=== PATIENT | male | born 1945 | race Caucasian/White ===

== ENCOUNTER 2016-12-12 08:37 | Inpatient (IN) ==
--- NOTE | 2016-12-12 08:45 | Emergency Department Note ---
Disposition Clinical Impression: Focal neurological deficit Disposition: Admitted As Inpatient Condition: Fair General Adult HPI - General Chief complaint: ED Neuro Symptoms/Deficit Stated complaint: neuro symtoms Time Seen by Provider: 12/12/16 08:41 - Related Data Home Medications Medication Instructions Recorded Confirmed Aspirin [Ecotrin] 325 mg PO QAM 12/12/16 12/12/16 GlyBURIDE 5 mg PO BID 12/12/16 12/12/16 Lisinopril [Zestril] 20 mg PO DAILY 12/12/16 12/12/16 Metformin [Glucophage] 1,000 mg PO QPM 12/12/16 12/12/16 Metformin [Glucophage] 500 mg PO QAM 12/12/16 12/12/16 Simvastatin [Zocor] 80 mg PO QPM 12/12/16 12/12/16 Allergies Allergy/AdvReac Type Severity Reaction Status Date / Time diphenhydramine Allergy Rash Verified 02/25/16 11:47 [From Benadryl] Past Medical History - Past Medical History Medical history: Reports: diabetes, hyperlipidemia, hypertension, valvular heart disease Surgical history: Reports: other (Open-heart valvular surgery) Psychiatric history: Reports: no psych history - Social History Smoking Status: Never smoker Smokeless Tobacco Status: No Alcohol use: Reports: none Drug use: Reports: none Course Vital Signs Temperature 98.6 F 12/12/16 08:47 Pulse Rate 78 12/12/16 08:47 Respiratory Rate 16 12/12/16 08:47 Blood Pressure 179/91 12/12/16 08:47 O2 Sat by Pulse Oximetry 97 12/12/16 08:47 Temperature 98.2 F 12/12/16 11:12 Pulse Rate 64 12/12/16 11:12 Respiratory Rate 18 12/12/16 11:12 Blood Pressure 161/90 12/12/16 11:12 O2 Sat by Pulse Oximetry 97 12/12/16 12:01 Oxygen Delivery Oxygen Delivery Room Air Medical Decision Making - Lab Data Result diagrams: 12/12/16 08:54 12/12/16 08:54 Lab Results 12/12/16 12/12/16 12/12/16 Range/Units 08:51 08:54 08:54 WBC 6.6 (4.3-11.1) K/mcL RBC 4.61 (4.19-5.50) M/mcL Hgb 14.6 (12.9-16.9) g/dL Hct 40.9 (37.5-50.1) % MCV 88.7 (83.0-100.0) fL MCH 31.7 (28.0-33.3) pg MCHC 35.7 H (31.6-35.5) g/dL RDW 12.4 (11.5-14.5) % Plt Count 208 (140-400) K/mcL MPV 9.5 (9.4-12.4) fL Immature Gran % 0.3 (0-4) % Seg Neutrophils % 63.9 % Lymphocytes % 24.8 % Monocytes % 9.0 % Eosinophils % 1.5 % Basophils % 0.5 % Neutrophils # 4.2 (1.6-8.9) K/mcL Lymphocytes # 1.6 (0.6-4.6) K/mcL Monocytes # 0.6 (0.0-1.3) K/mcL Eosinophils # 0.1 (0.0-0.6) K/mcL Basophils # 0.0 (0.0-0.2) K/mcL PT 12.2 H (9.4-12.1) Seconds INR 1.1 APTT 32.0 (26.0-36.0) Seconds Sodium (136-145) mEq/L Potassium (3.5-4.5) mEq/L Chloride (98-109) mEq/L Carbon Dioxide (19-29) mEq/L BUN (8-26) mg/dL Creatinine (0.72-1.25) mg/dL Est GFR ( Amer) (> 60) Est GFR (Non-Af Amer) (> 60) BUN/Creatinine Ratio (6-26) Glucose (70-99) mg/dL POC Glucose 192 H (58-89) Calculated Osmolality (280-300) Calcium (8.6-10.8) mg/dL Total Bilirubin (0.2-1.2) mg/dL AST (5-34) Units/L ALT (0-55) Units/L Alkaline Phosphatase (38-126) Units/L Troponin I (0-0.03) ng/mL Serum Total Protein (6.0-8.3) g/dL Albumin (3.5-5.0) g/dL Globulin (2.4-3.5) g/dL Albumin/Globulin Ratio (1.1-2.2) 12/12/16 12/12/16 Range/Units 08:54 08:54 WBC (4.3-11.1) K/mcL RBC (4.19-5.50) M/mcL Hgb (12.9-16.9) g/dL Hct (37.5-50.1) % MCV (83.0-100.0) fL MCH (28.0-33.3) pg MCHC (31.6-35.5) g/dL RDW (11.5-14.5) % Plt Count (140-400) K/mcL MPV (9.4-12.4) fL Immature Gran % (0-4) % Seg Neutrophils % % Lymphocytes % % Monocytes % % Eosinophils % % Basophils % % Neutrophils # (1.6-8.9) K/mcL Lymphocytes # (0.6-4.6) K/mcL Monocytes # (0.0-1.3) K/mcL Eosinophils # (0.0-0.6) K/mcL Basophils # (0.0-0.2) K/mcL PT (9.4-12.1) Seconds INR APTT (26.0-36.0) Seconds Sodium 133 L (136-145) mEq/L Potassium 4.0 (3.5-4.5) mEq/L Chloride 99 (98-109) mEq/L Carbon Dioxide 24 (19-29) mEq/L BUN 12 (8-26) mg/dL Creatinine 0.80 (0.72-1.25) mg/dL Est GFR ( Amer) > 60 (> 60) Est GFR (Non-Af Amer) > 60 (> 60) BUN/Creatinine Ratio 15 (6-26) Glucose 191 H (70-99) mg/dL POC Glucose (58-89) Calculated Osmolality 281 (280-300) Calcium 9.4 (8.6-10.8) mg/dL Total Bilirubin 1.1 (0.2-1.2) mg/dL AST 16 (5-34) Units/L ALT 14 (0-55) Units/L Alkaline Phosphatase 48 (38-126) Units/L Troponin I 0.02 (0-0.03) ng/mL Serum Total Protein 7.1 (6.0-8.3) g/dL Albumin 3.8 (3.5-5.0) g/dL Globulin 3.3 (2.4-3.5) g/dL Albumin/Globulin Ratio 1.2 (1.1-2.2) Attestation Statement - Attestation Attestation: I examined this patient and my medical decision-making was reviewed with the SENIOR APPLICATIONS ARCHITECT/PA/Advanced Practice Nurse/Resident Physician. I agree with the documented findings, disposition and treatment plan as described except to the extent set forth below. [id number] time provided Patient presents complaining of a headache that started yesterday morning. Approximately 12 hours ago he developed deviation of his right eye medially. This morning he developed ataxia and imbalance. The patient is resting comfortably on exam. He does have medial deviation of his right eye. He was able to transfer from the wheelchair to the stretcher with limited assistance. Plan of care and management discussed by me with the resident physician Dr. Bates
--- NOTE | 2016-12-12 09:01 | Emergency Department Note ---
Disposition Clinical Impression: Focal neurological deficit Disposition: Admitted As Inpatient Condition: Fair Neuro HPI - General Chief Complaint: ED Neuro Symptoms/Deficit Stated Complaint: neuro symtoms Time Seen by Provider: 12/12/16 08:41 Source: patient, family Limitations: no limitations Nursing Notes Reviewed: Yes Vital Signs Reviewed: Yes - History of Present Illness HPI Narrative: Mr. Santos, a 8-year-old male, presents from home by POV with chief complaint of difficulty with ambulation. Initially morning, patient awoke at 8am with intense sharp stabbing right temporal and frontal headache which persisted throughout the day. Yesterday at 2129, patient's right eye spontaneously deviated nasally and has remained in that position; he refused to come to emergency department instead preferring to follow-up with his PCP on Tuesday. This morning, patient awoke at 8 AM and had difficulty ambulating inside to come to the emergency department. In regards to his vision, patient is able to see out of his right eye however he is unable to move his right eye temporally. Approximately 25 years ago, patient's left eye spontaneously deviated nasally from lateral rectus palsy. At that time, neurologic workup did not show any central cause and patient was told the muscle of his eye was personally paralyzed likely due to his diabetes. He typically wears eyeglasses with a cover over the left lens. 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 In regards to patient's difficulty with ambulation, described as fuzzy vision with new onset tremor of his right hand. PMH: Hypertension, hyperlipidemia, diabetes, heart valve replacement. - Related Data Home Medications: Home Medications Medication Instructions Recorded Confirmed Aspirin [Ecotrin] 325 mg PO QAM 12/12/16 12/12/16 GlyBURIDE 5 mg PO BID 12/12/16 12/12/16 Lisinopril [Zestril] 20 mg PO DAILY 12/12/16 12/12/16 Metformin [Glucophage] 1,000 mg PO QPM 12/12/16 12/12/16 Metformin [Glucophage] 500 mg PO QAM 12/12/16 12/12/16 Simvastatin [Zocor] 80 mg PO QPM 12/12/16 12/12/16 Allergies/Adverse Reactions: Allergies Allergy/AdvReac Type Severity Reaction Status Date / Time diphenhydramine Allergy Rash Verified 02/25/16 11:47 [From Benadryl] All systems ED: reviewed and negative except as stated. Constitutional: Denies: fever, chills, weakness Eyes: Reports: vision change. Denies: eye pain, eye discharge ENT ED: Denies: ear pain, hearing loss, congestion Cardiovascular: Denies: chest pain, palpitations, dyspnea on exertion Respiratory: Denies: cough, dyspnea, wheezes Gastrointestinal: Denies: abdominal pain, nausea, vomiting, diarrhea, constipation Genitourinary: Denies: urgency, dysuria, frequency Musculoskeletal: Denies: back pain, neck pain Integumentary: Denies: rash, abrasion Neurological: Reports: vertigo. Denies: headache, weakness, numbness, paresthesias, confusion, abnormal gait Past Medical History - Past Medical History Medical history: Reports: diabetes, hyperlipidemia, hypertension, valvular heart disease Surgical history: Reports: other (Open-heart valvular surgery) Psychiatric history: Reports: no psych history - Social History Smoking Status: Never smoker Smokeless Tobacco Status: No Alcohol use: Reports: none Drug use: Reports: none Physical Exam General: Patient is alert, oriented, and in no acute distress. HEENT: Head is normocephalic and atraumatic. Face is symmetric at rest but with right corner of mouth droop on smiling; patient and state this is chronic. Bilateral PERRLA but sluggish. Left eye has forced nasal deviation. Right eye has forced nasal deviation with movement superiorly, inferiorly, and nasally; without movement temporally. Cardiovascular: Heart regular rate and rhythm without clicks, rubs, gallops, or murmurs. No JVD. PMI nondisplaced. Respiratory: Symmetric chest rise with good respiratory effort. Bilateral breath sounds are clear without wheezing, crackles, or rhonchi. Abdomen: Bowel sounds present normoactive x-4 quadrants. Abdomen is soft, nondistended, and nontender. No organomegaly noted. Musculoskeletal: Muscle strength 5/5 and symmetric bilaterally in upper and lower extremities. DTRs 2/4 and symmetric bilaterally in upper and lower extremities. Neuro: Cranial nerves II through XII without new deficit. Sensation light touch intact. Negative ear to nose, no pronator drift, no limb ataxia in upper or lower extremities, nose area of speech, no gait ataxia, no hemineglect. Psych: Patient's affect is appropriate for situation. - General Limitations: no limitations General appearance: alert Course Course Narrative: Immediate concern is for CVA. Patient is outside the window of TPA treatment; will not call a code stroke at this time. There is also the possibility of lateral rectus palsy from an infarcted vessel evidenced by his clinical story of acute onset sharp headache which is completely resolves after the lateral rectus failed. Labwork is unremarkable. EKG unremarkable. CT head unremarkable. We will follow-up with MRI. Discussed with the patient the need for continued evaluation and workup. He and his agree to come into the hospital. Spoke with the hospitalist, Dr. Andrews, who agrees to accept the patient to his service. MRI pending. Vital Signs Temperature 98.6 F 12/12/16 08:47 Pulse Rate 78 12/12/16 08:47 Respiratory Rate 16 12/12/16 08:47 Blood Pressure 179/91 12/12/16 08:47 O2 Sat by Pulse Oximetry 97 12/12/16 08:47 Temperature 98.2 F 12/12/16 11:12 Pulse Rate 64 12/12/16 11:12 Respiratory Rate 18 12/12/16 11:12 Blood Pressure 161/90 12/12/16 11:12 O2 Sat by Pulse Oximetry 97 12/12/16 11:12 Oxygen Delivery Oxygen Delivery Room Air Neuro Symptoms/Deficit - Medical Records Medical records reviewed: Yes I reviewed the patient's medical records. - Lab Data Lab results reviewed: Yes I reviewed the patient's lab results. Result diagrams: 12/12/16 08:54 12/12/16 08:54 Lab Results 12/12/16 12/12/16 12/12/16 Range/Units 08:51 08:54 08:54 WBC 6.6 (4.3-11.1) K/mcL RBC 4.61 (4.19-5.50) M/mcL Hgb 14.6 (12.9-16.9) g/dL Hct 40.9 (37.5-50.1) % MCV 88.7 (83.0-100.0) fL MCH 31.7 (28.0-33.3) pg MCHC 35.7 H (31.6-35.5) g/dL RDW 12.4 (11.5-14.5) % Plt Count 208 (140-400) K/mcL MPV 9.5 (9.4-12.4) fL Immature Gran % 0.3 (0-4) % Seg Neutrophils % 63.9 % Lymphocytes % 24.8 % Monocytes % 9.0 % Eosinophils % 1.5 % Basophils % 0.5 % Neutrophils # 4.2 (1.6-8.9) K/mcL Lymphocytes # 1.6 (0.6-4.6) K/mcL Monocytes # 0.6 (0.0-1.3) K/mcL Eosinophils # 0.1 (0.0-0.6) K/mcL Basophils # 0.0 (0.0-0.2) K/mcL PT 12.2 H (9.4-12.1) Seconds INR 1.1 APTT 32.0 (26.0-36.0) Seconds Sodium (136-145) mEq/L Potassium (3.5-4.5) mEq/L Chloride (98-109) mEq/L Carbon Dioxide (19-29) mEq/L BUN (8-26) mg/dL Creatinine (0.72-1.25) mg/dL Est GFR ( Amer) (> 60) Est GFR (Non-Af Amer) (> 60) BUN/Creatinine Ratio (6-26) Glucose (70-99) mg/dL POC Glucose 192 H (58-89) Calculated Osmolality (280-300) Calcium (8.6-10.8) mg/dL Total Bilirubin (0.2-1.2) mg/dL AST (5-34) Units/L ALT (0-55) Units/L Alkaline Phosphatase (38-126) Units/L Troponin I (0-0.03) ng/mL Serum Total Protein (6.0-8.3) g/dL Albumin (3.5-5.0) g/dL Globulin (2.4-3.5) g/dL Albumin/Globulin Ratio (1.1-2.2) 12/12/16 12/12/16 Range/Units 08:54 08:54 WBC (4.3-11.1) K/mcL RBC (4.19-5.50) M/mcL Hgb (12.9-16.9) g/dL Hct (37.5-50.1) % MCV (83.0-100.0) fL MCH (28.0-33.3) pg MCHC (31.6-35.5) g/dL RDW (11.5-14.5) % Plt Count (140-400) K/mcL MPV (9.4-12.4) fL Immature Gran % (0-4) % Seg Neutrophils % % Lymphocytes % % Monocytes % % Eosinophils % % Basophils % % Neutrophils # (1.6-8.9) K/mcL Lymphocytes # (0.6-4.6) K/mcL Monocytes # (0.0-1.3) K/mcL Eosinophils # (0.0-0.6) K/mcL Basophils # (0.0-0.2) K/mcL PT (9.4-12.1) Seconds INR APTT (26.0-36.0) Seconds Sodium 133 L (136-145) mEq/L Potassium 4.0 (3.5-4.5) mEq/L Chloride 99 (98-109) mEq/L Carbon Dioxide 24 (19-29) mEq/L BUN 12 (8-26) mg/dL Creatinine 0.80 (0.72-1.25) mg/dL Est GFR ( Amer) > 60 (> 60) Est GFR (Non-Af Amer) > 60 (> 60) BUN/Creatinine Ratio 15 (6-26) Glucose 191 H (70-99) mg/dL POC Glucose (58-89) Calculated Osmolality 281 (280-300) Calcium 9.4 (8.6-10.8) mg/dL Total Bilirubin 1.1 (0.2-1.2) mg/dL AST 16 (5-34) Units/L ALT 14 (0-55) Units/L Alkaline Phosphatase 48 (38-126) Units/L Troponin I 0.02 (0-0.03) ng/mL Serum Total Protein 7.1 (6.0-8.3) g/dL Albumin 3.8 (3.5-5.0) g/dL Globulin 3.3 (2.4-3.5) g/dL Albumin/Globulin Ratio 1.2 (1.1-2.2) - Radiology Data Radiology results reviewed: Yes I reviewed the patient's radiology results. - EKG Data EKG attestation: Yes I reviewed and interpreted this EKG. EKG results narrative: EKG dated 12 December at 08:57 shows sinus rhythm with a rate of 67. Normal intervals with LA 150, QRS 98, QT/QTC 392/407. Normal axis. Nonspecific ST-T changes. Compared to previous dated 02/25/2016 showing no acute ischemic changes in comparison. NIH Stroke Scale - Level of Consciousness LOC: Alert - LOC Questions LOC Questions: Answers both correctly - LOC Commands LOC Commands: Performs both correctly - Best Gaze Best Gaze: Forced deviation - Visual Visual: Partial hemianopia - Facial Palsy Facial Palsy: Minor asymmetry on smiling, flattened nasolabial fold (chronic right mouth corner droop 2/2 [place] Pales[place]) - Motor Arms Motor Arm-Left: No drift for 10 seconds Motor Arm-Right: No drift for 10 seconds - Motor Legs Motor Leg-Left: No drift for 5 seconds Motor Leg-Right: No drift for 5 seconds - Limb Ataxia Limb Ataxia: Normal, No Ataxia - Sensory Sensory: Normal - Best Language Best Language: No aphasia - Dysarthria Dysarthria: Normal - Extinction and Inattention Extinction and Inattention: Normal - NIHSS Total Score NIHSS Total Score: 4 - Pupil Exam Bilateral Pupil Reaction: Sluggish TPA Checklist - Source Information Source: Patient - Eligibilty for IV tPA 1. LKW equal to or less than 4.5 hours be before treatment: No - LKW: 3-4.5 hrs Add. Contraindications Patient/family understanding: The patient/family members have been counseled and understood the risk, benefit , and alternatives of treatment.
[2016-12-12 09:02] LABS: Basophils % 0.5 %; Eosinophils # 0.1 K/mcL (0.0-0.6); Eosinophils % 1.5 %; Hematocrit 40.9 % (37.5-50.1); Hemoglobin 14.6 g/dL (12.9-16.9); Immature Granulocytes % 0.3 % (0-4); Lymphocytes # 1.6 K/mcL (0.6-4.6); Lymphocytes % 24.8 %; Mean Corpuscular HGB Conc 35.7 g/dL (31.6-35.5); Mean Corpuscular Hemoglobin 31.7 pg (28.0-33.3); Mean Corpuscular Volume 88.7 fL (83.0-100.0); Mean Platelet Volume 9.5 fL (9.4-12.4); Monocytes # 0.6 K/mcL (0.0-1.3); Neutrophils # 4.2 K/mcL (1.6-8.9); Platelet Count 208 K/mcL (140-400); Red Blood Count 4.61 M/mcL (4.19-5.50); Red Cell Distribution Width 12.4 % (11.5-14.5); Segmented Neutrophils % 63.9 %
[2016-12-12 09:08] LABS: INR 1.1; Prothrombin Time 12.2 Seconds (9.4-12.1)
[2016-12-12 09:20] LABS: Alanine Aminotransferase 14 Units/L (0-55); Albumin 3.8 g/dL (3.5-5.0); Albumin/Globulin Ratio 1.2 (1.1-2.2); Alkaline Phosphatase 48 Units/L (38-126); Aspartate Amino Transferase 16 Units/L (5-34); BUN/Creatinine Ratio 15 (6-26); Bilirubin,Total 1.1 mg/dL (0.2-1.2); Blood Urea Nitrogen 12 mg/dL (8-26); Calcium 9.4 mg/dL (8.6-10.8); Carbon Dioxide 24 mEq/L (19-29); Chloride 99 mEq/L (98-109); Globulin 3.3 g/dL (2.4-3.5); Glucose 191 mg/dL (70-99); Osmolality,Calculated 281 (280-300); Sodium 133 mEq/L (136-145); Total Protein 7.1 g/dL (6.0-8.3); eGFR For African Americans > 60 (> 60); eGFR For Non-African Americans > 60 (> 60)
[2016-12-12] MEDS ORDERED: *HR* Morphine 2 MG/ML SYRINGE IVP PRN (11:46)
[2016-12-12] MEDS ORDERED: Naloxone 0.4 MG/ML INJ IVP PRN (11:46)
--- NOTE | 2016-12-12 11:58 | Internal Med History&Physical ---
Date of Encounter: 12/12/16 Time of Encounter: 11:56 Assessment and Plan (1) Cerebellar infarction Status: Acute Cerebellar infarct: -Admitted as inpatient -Patient has passed swallow evaluation and he can eat -ASA/statin - PT/OT -DVT prophylaxis: Heparin -Neurologic consult (2) Focal neurological deficit Status: Acute We will follow neurologic evaluation and recommendation (3) Diabetes mellitus Status: Chronic Patient had a previously issues with the insulin. We will continue home glyburide. 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 Medical decision making: This patient has a mild to moderately risk of worsening neurological status in spite of being on appropriate medication Qualifiers: Hypertension type: essential hypertension Qualified Code(s): I10 - Essential (primary) hypertension Internal Medicine - H&P: HPI Chief complaint: Headache and eye deviation Admitted From: Emergency Dept Plans for Post Hospital Care: Home History of present illness: PCP: Dr Oshea Brief PMH: diabetes, hyperlipidemia, hypertension, valvular heart disease HPI: Initially morning, patient awoke at 8am with intense sharp stabbing right temporal and frontal headache which persisted throughout the day. Yesterday at 2130, patient's right eye spontaneously deviated nasally and has remained in that position; he refused to come to emergency department instead preferring to follow-up with his PCP on Tuesday. His symptoms are getting worse and that is the reason his pushed him to come to the emergency room. Workup at emergency room: CT scan of the brain was performed which did not show any active bleed. Basic labs were drawn. MRI of the brain was done Which showed acute left cerebellar infarction. Reason for admission: Acute left cerebellar infarction. Need Further close monitoring to watch for possible hydrocephalus. Family history noncontributory Past Med Surg Social Fam HX - Past Medical History Medical history: diabetes, hyperlipidemia, hypertension, valvular heart disease Psychiatric history: no psych history - Past Surgical History Surgical History: other (Open-heart valvular surgery) - Social History Smoking Status: Never smoker Smokeless Tobacco Status: No Alcohol use: none Drug use: none Internal Medicine - H&P: Meds Aspirin [Ecotrin] 325 mg PO QAM 12/12/16 [History] GlyBURIDE 5 mg PO BID 12/12/16 [History] Lisinopril [Zestril] 20 mg PO DAILY 12/12/16 [History] Metformin [Glucophage] 1,000 mg PO QPM 12/12/16 [History] Metformin [Glucophage] 500 mg PO QAM 12/12/16 [History] Simvastatin [Zocor] 80 mg PO QPM 12/12/16 [History] Clopidogrel [Plavix] 75 mg PO DAILY #30 tablet 12/13/16 [Rx] Allergies diphenhydramine [From Benadryl] Allergy (Verified 02/25/16 11:47) Rash All Systems PM: A 10-system review of systems was performed and is negative for pertinent findings except as documented above in the HPI. - Constitutional Constitutional: no chills, no fever(s), no night sweats - EENT Eyes: no change in vision, no discharge, no pain, no photophobia Ears: no ear discharge, no ear pain, no tinnitus Nose, mouth and throat: no dysphagia, no nasal discharge, no neck pain, no sore throat - Cardiovascular Cardiovascular ROS IM: no chest pain, no diaphoresis, no dyspnea, no lightheadedness, no palpitations, no syncope - Respiratory Respiratory: no cough, no dyspnea, no wheezing, no excessive phlegm production - Gastrointestinal Gastrointestinal: no abdominal pain, no diarrhea, no hematemesis, no hematochezia, no melena, no nausea, no vomiting - Musculoskeletal Musculoskeletal ROS IM: no numbness, no tingling - Integumentary Integumentary IM: no rash, no unusual bruising - Neurological Neurological ROS: headache(s), paresthesias, no confusion, no convulsions, no focal weakness, no numbness, no tingling, no tremor(s) - Hematologic/Lymphatic Hematologic/Lymphatic: no easy bruising - Constitutional Vitals: Temp Pulse Resp BP Pulse Ox 98.2 F 64 18 161/90 97 12/12/16 11:12 12/12/16 11:12 12/12/16 11:12 12/12/16 11:12 12/12/16 11:12 General appearance: Present: A&O X 3, pleasant, answers questions appropriately - Head Head exam: Present: atraumatic, normocephalic - Eye Eye exam: Present: PERRL, conjuntiva pink, sclera anicteric Pupils: Present: PERRL Additional comments: He has medial deviation of his right eye. - Neck Neck exam general surgery: Present: supple, trachea midline. Absent: lymphadenopathy - Respiratory Respiratory exam: Present: CTAB. Absent: accessory muscle use, rales, rhonchi, wheezes - Cardiovascular Cardiovascular exam: Present: RRR, +S1, +S2. Absent: diastolic murmur, gallop, rubs, systolic murmur - GI/Abdominal GI/Abdominal exam: Present: normal bowel sounds, soft, no peritoneal signs. Absent: distended, tenderness - Extremities Exam Extremities exam: Present: warm, radial pulses palpable and symetrical. Absent : calf tenderness, cyanotic, pedal edema - Neurological Exam Neurological exam: Present: CN II-XII intact, oriented X3, no focal deficits. Absent: pronater drift, facial droop, speech deficit - Skin Skin exam: Present: dry, intact Internal Med - H&P Results - Labs CBC & Chem 7: 12/13/16 00:43 12/13/16 00:43
--- NOTE | 2016-12-12 17:30 | Neurology - Consult Note ---
Date of Encounter: 12/12/16 Time of Encounter: 17:27 Assessment and Plan (1) Cerebellar infarction Current Visit: Yes Status: Acute he noted to have acute left cerebellar infarct predominantly small vessel.l patient has multiple risk factors for stroke suggests that we should continue to monitor his blood pressure and blood sugar he is on asa suggested to continue perhaps any may add PLAVIX 75 mg daily. Same time he would need workup including carotid duplex as well as echocardiogram for an embolic source monitor for for any cardiac arrhythmias. 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 Santos is a 71 year old male was been admitted to the emergency room mainly due to difficulty with his gait and balance issues. According to the patient earlier he had some intense sharp stabbing right temporal and frontal headache which persisted throughout the day. Yesterday at 2129, patient's right eye spontaneously deviated nasally and has remained in that position; he refused to come to emergency department instead preferring to follow-up with his PCP on Tuesday. This morning, patient awoke at 8 AM and had difficulty ambulating inside to come to the emergency department. Beside difficulty with his vision he has noted some difficulty with his right arm though he did not add any significant motor weakness , She did have some issues with his left eye several years ago when it was deviated nasally, same time he also has a drooping of his left eye, neurologic workup did not show any central cause and patient was told the muscle of his eye was paralyzed likely due to his diabetes. 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 But it is relatively mild at this time his main problem is his right eye which is mostly looking towards nose I Past Med Surg Social Fam HX - Past Medical History Medical history: diabetes, hyperlipidemia, hypertension, valvular heart disease Psychiatric history: no psych history - Past Surgical History Surgical History: other (Open-heart valvular surgery) - Social History Smoking Status: Never smoker Smokeless Tobacco Status: No Alcohol use: none Drug use: none Medications and Allergies Aspirin [Ecotrin] 325 mg PO QAM 12/12/16 [History] GlyBURIDE 5 mg PO BID 12/12/16 [History] Lisinopril [Zestril] 20 mg PO DAILY 12/12/16 [History] Metformin [Glucophage] 1,000 mg PO QPM 12/12/16 [History] Metformin [Glucophage] 500 mg PO QAM 12/12/16 [History] Simvastatin [Zocor] 80 mg PO QPM 12/12/16 [History] Allergies diphenhydramine [From Benadryl] Allergy (Verified 02/25/16 11:47) Rash All Systems: A 10-system review of systems was performed and is negative for pertinent findings except as documented above in the HPI. Physical Examination - Vital Signs Vital Signs: Initial Vital Signs Temp Pulse Resp BP Pulse Ox 98.6 F 78 16 179/91 97 12/12/16 08:47 12/12/16 08:47 12/12/16 08:47 12/12/16 08:47 12/12/16 08:47 - Constitutional General appearance: comfortable - Neurologic Sensorimotor examination: intact Motor examination - right side: 5/5: deltoids, biceps, triceps, wrist flexion, wrist extension, mental hygiene consultant, hip flexors, tibialis Anterior, quadriceps, toe extension (EHL), plantarflexion Motor examination - left side: 5/5: deltoids, biceps, triceps, wrist flexion, wrist extension, hip flexors, mental hygiene consultant, quadriceps, tibialis Anterior, toe extension (EHL), plantarflexion Detailed sensory examination: intact Reflexes: Biceps: 1+, Triceps: 1+, Brachioradialis: 1+, Patella: 1+, Achilles: 1 + Mental Status Examination: awake, alert, oriented to person, oriented to place, oriented to time, follows commands appropriately, answers questions appropriately, no agnosia, no aphasia Cranial nerve examination: PERRL (Informal examination patient did have difficulty in eye movement his right eye is deviated towards the nose and not able to move to right, NORMA.), EOMI (left eye droopy and deviated to nose as well (OLD)) Cranial Nerve Exam: partial CN III palsy: Left (old) Ataxia: right upper extremity (mild) Results - Laboratory Findings CBC and BMP: 12/12/16 08:54 12/12/16 08:54 Abnormal lab findings: Abnormal lab results MCHC 35.7 g/dL (31.6-35.5) H 12/12/16 08:54 PT 12.2 Seconds (9.4-12.1) H 12/12/16 08:54 Sodium 133 mEq/L (136-145) L 12/12/16 08:54 Glucose 191 mg/dL (70-99) H 12/12/16 08:54 POC Glucose 206 (58-89) H 12/12/16 15:44 Consult Discharge Plan - Plan Referrals: Jeremi Oshea Jr, MD [Primary Care Provider] -
[2016-12-12] MEDS: *HR* Heparin 5,000 UNIT/ML VIAL SQ SCH (17:55)
[2016-12-12 22:15] LABS: Bilirubin,Urine Negative (Negative); Blood,Urine Negative (Negative); Clarity,Urine Clear (Clear); Color,Urine Yellow (Yellow); Glucose,Urine (UA) >=1000 mg/dL (Normal); Ketones,Urine Trace mg/dL (Negative); Leukocyte Esterase,Urine Negative (Negative); Nitrite,Urine Negative (Negative); Protein,Urine Negative (Neg-Trace); Urobilinogen,Urine Normal (Normal)
[2016-12-12] MEDS: *HR* GlyBURIDE 5 MG TABLET PO SCH (22:51)
[2016-12-13 01:20] LABS: Basophils % 0.6 %; Eosinophils # 0.1 K/mcL (0.0-0.6); Eosinophils % 1.9 %; Hematocrit 38.8 % (37.5-50.1); Hemoglobin 13.4 g/dL (12.9-16.9); Immature Granulocytes % 0.3 % (0-4); Lymphocytes # 1.9 K/mcL (0.6-4.6); Lymphocytes % 26.5 %; Mean Corpuscular HGB Conc 34.5 g/dL (31.6-35.5); Mean Corpuscular Hemoglobin 31.2 pg (28.0-33.3); Mean Corpuscular Volume 90.2 fL (83.0-100.0); Mean Platelet Volume 9.9 fL (9.4-12.4); Monocytes # 0.8 K/mcL (0.0-1.3); Neutrophils # 4.3 K/mcL (1.6-8.9); Platelet Count 222 K/mcL (140-400); Red Cell Distribution Width 12.7 % (11.5-14.5); Segmented Neutrophils % 59.7 %
[2016-12-13 01:25] LABS: Alanine Aminotransferase 13 Units/L (0-55); Albumin 3.4 g/dL (3.5-5.0); Albumin/Globulin Ratio 1.1 (1.1-2.2); Alkaline Phosphatase 42 Units/L (38-126); Aspartate Amino Transferase 14 Units/L (5-34); BUN/Creatinine Ratio 19 (6-26); Bilirubin,Total 0.8 mg/dL (0.2-1.2); Blood Urea Nitrogen 16 mg/dL (8-26); Calcium 9.4 mg/dL (8.6-10.8); Carbon Dioxide 25 mEq/L (19-29); Chloride 101 mEq/L (98-109); Chol/HDL Ratio 4.1 (0-4.9); Cholesterol 155 mg/dL (< 200); Glucose 193 mg/dL (70-99); HDL Cholesterol 38 mg/dL (40-59); LDL Cholesterol,Calculated 93 mg/dL (0-99); Magnesium 1.7 mg/dL (1.6-2.6); Osmolality,Calculated 286 (280-300); Phosphorous 2.9 mg/dL (2.3-4.7); Potassium 3.9 mEq/L (3.5-4.5); Sodium 135 mEq/L (136-145); Total Protein 6.4 g/dL (6.0-8.3); Triglycerides 118 mg/dL (< 150); eGFR For African Americans > 60 (> 60); eGFR For Non-African Americans > 60 (> 60)
[2016-12-13] MEDS: *HR* Heparin 5,000 UNIT/ML VIAL SQ SCH (05:04)
--- NOTE | 2016-12-13 07:44 | ECHO - Doppler Report ---
Echo with Saline Contrast Name: Sascha Santos Date of Study: 12/12/2016 Date: 1945 Ht: 65.0 in Medical Record#: [id number] Age: 71 Wt: 172.0 lb Gender: Male BSA: 1.86 Order #: [id number] Location: [facility] Room #: 3B Reading Physician: Sascha Mobley MD, [facility] Uniform Designer: Rosa Boland Ordering Physician: Mario Andrews MD Primary Physician: Jeremi Oshea MD Indications: CVA Impressions: No evidence of PFO by color Doppler or agitated saline Moderate aortic stenosis by mean gradient of 24mm Hg maybe more than expected for bioprosthetic valve, please clinically correlate with his valve type and size LVEF 55-60%. Left Ventricular Wall Motion: Rest Echo Findings All wall segments showed normal motion. Findings: Study Quality * Technically adequate exam. Right Ventricle * Normal right ventricular structure and function. Right Atrium * Normal right atrial size. Mitral Valve * Mildly calcified mitral valve leaflets. * No mitral stenosis. * Trace mitral regurgitation. Interatrial Septum * No evidence of PFO by color Doppler or agitated saline Aorta * Normally sized aortic root. Left Atrium * Moderately dilated left atrium. Pulmonic Valve * Pulmonic valve is not well visualized. * No pulmonic stenosis. * No pulmonic regurgitation. Tricuspid Valve * Trace tricuspid regurgitation. * No tricuspid stenosis. * Unable to estimate RVSP due to lack of TR jet. * Tricuspid valve not well visualized. Pericardium * There is a trivial pericardial effusion present. Aortic Valve * Aortic valve not well visualized. Bioprosthetic aortic valve in place * Trivial aortic regurgitation. * Moderate aortic stenosis. * Peak and mean gradients are 45 24 mmHg, respectively. Left Ventricle * LVEF 55-60%. * Indeterminate diastolic function. History Hypertension Diabetes Hypercholesteremia Valve Replacement AV Prosthesis Biologic 12/30/2011 a Previous Echo was performed. Measurements: BP: 161/ 90 2D Normal Values RVIDd: 4.10 cm <2.7 cm IVSd: 1.00 cm 0.6 - 1.0 cm LVIDd: 4.90 cm 3.7 - 5.6 cm LVPWd: .90 cm 0.6 - 1.1 cm LVIDs: 3.20 cm 1.5 - 3.6 cm LA: 4.70 cm 2.0 - 4.0cm %FS: 34.70 cm >25 % LVOT Diam: 2.00 cm LA volume: 86 Mitral Valve Peak E:.84 m/sec Peak A:.76 m/sec E/A Ratio:1.1 Peak E' Lat [place]:7.7 cm/s Peak E' Med [place]:4.58 cm/s E/E' Lat Ratio:11 E/E' Med Ratio:18.4 LVOT Peak [place]:1.45 m/sec Mean [place]:.92 m/sec Peak Grad:8.00 mmHg Mean Grad:4.00 mmHg Aortic Valve Peak [place]:3.64 m/sec Mean [place]:2.18 m/sec Peak Grad:53.00 mmHg Mean Grad:23.00 mmHg Valve Area:1.47 cm2 Tricuspid Valve TV Regurg Peak Grad: 8.00mmHg TV Regurg Peak [place]: 1.42m/sec Updated by Sascha Mobley MD, [facility] on 12/13/2016 7:29:47 AM electronically signed on 12/13/2016 7:39:23 AM with status of Final Wall Motion Bowman: 1=Normal, 2=Hypokinesis, 3=Akinesis, 4=Dyskinesis, 5=Aneurysmal, 6=Hyperkinetic, X=Not Visualized (Blank)=Missing
[2016-12-13] MEDS ORDERED: Aspirin Enteric Coated 325 MG Tablet PO SCH (09:00)
[2016-12-13] MEDS ORDERED: Lisinopril 20 MG TABLET PO SCH (09:00)
[2016-12-13] MEDS: *HR* GlyBURIDE 5 MG TABLET PO SCH (10:03)
--- NOTE | 2016-12-13 10:21 | Discharge Summary ---
Date of Encounter: 12/13/16 Time of Encounter: 09:00 - Discharge Diagnosis (1) Cerebellar infarction Priority: Primary Status: Acute Comments: MRI consistent with acute infarction to left cerebellar area. Neurology on board, Plavix has been added to the patient's regimen. Patient continues with persistent right-sided esotropia and I have spoken to his buttermaker continuous churn Dr. Quezada and he will see him on Wednesday 12/20 at 8:15 AM. OT and PT surmised he had no needs. ITS Impressions Brain MRI 12/12/16 09:36 IMPRESSION: 1. Small, acute left cerebellar lacunar infarct. 2. Mild generalized volume loss and mild microvascular ischemic disease are similar to prior. 3. No abnormal enhancement or mass lesion along the course of cranial nerves VII or VIII. The findings were sent to the Radiology Results Communication Center at 12:59 p.m. on 12/12/2016to be communicated to a licensed caregiver. D/ / 12/12/2016 13:02:18 Tiffany Ontiveros MD / ann-marie Interpreting Provider: Tiffany Ontiveros MD (2) Esotropia of left eye Priority: Secondary Status: Chronic Comments: chronic x20 years. Patient stating he was "really stressed out" with his son which he believes may have caused this. (3) Esotropia of right eye Priority: Primary Status: Acute Comments: Acute since Tuesday. Patient with same symptoms on his left eye 20 years. He follows with an engineering director and an buttermaker continuous churn with whom I spoke to and he will follow up with him on Tuesday. (4) H/O aortic valve replacement Priority: Secondary Status: Chronic Comments: stating patient with porcine valve replacement in 2007. Echocardiogram revealing moderate stenosis, follow-up outpatient. Only anticoagulation is full -strength aspirin daily. (5) Diabetes mellitus Priority: Secondary Status: Chronic Comments: Relatively well controlled with an A1c of 7.8% on 08/16/16. Recommend continued follow-up outpatient. 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 Recommend daily blood pressure checks at home, keeping a log, and following up outpatient. 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, bilateral - Discharge Medications Prescriptions: Clopidogrel [Plavix] 75 mg PO DAILY #30 tablet Home Medications: Aspirin [Ecotrin] 325 mg PO QAM 12/12/16 [History] GlyBURIDE 5 mg PO BID 12/12/16 [History] Lisinopril [Zestril] 20 mg PO DAILY 12/12/16 [History] Metformin [Glucophage] 1,000 mg PO QPM 12/12/16 [History] Metformin [Glucophage] 500 mg PO QAM 12/12/16 [History] Simvastatin [Zocor] 80 mg PO QPM 12/12/16 [History] Clopidogrel [Plavix] 75 mg PO DAILY #30 tablet 12/13/16 [Rx] Allergies/Adverse Reactions: Allergies diphenhydramine [From Benadryl] Allergy (Verified 02/25/16 11:47) Rash Date of admission: 12/12/16 15:29 Primary care physician: Jeremi Oshea Jr, MD Consults: 12/12/16 11:51 Consult to Occupational Therapy [CONS] Routine Comment: Evaluate, develop and implement POC Consult to Physical Therapy [CONS] Routine Comment: Evaluate, develop and implement POC 12/12/16 13:58 Consult to Neurology [CONS] Routine Consulting Provider: Neurology [facility] Reason for Consult: acute left cerebellar infarct Call Completed: Yes Discharging clinician: Elizabeth Foote Anticipated date of discharge: 12/13/16 (no needs per OT/PT) - Patient Status Disposition: Home, Self-Care Condition: Fair Functional capacity at discharge: independent ambulation Overall status at discharge: patient is progressing back to baseline - Discharge Instructions Follow Up With: Vargas Mace MD [Non-Partnered Physician] - Kayla Coles, FARMWORKER [employer]UIT [Advanced Practice Nurse] - 12/17/16 1:45 pm Cardiology [facility] [Provider Group] Vascular Surgery [facility] [Provider Group] Additional Instructions: Follow-up with primary care provider in one to 2 weeks, follow-up with buttermaker continuous churn on Wednesday 12/20 at 8:15 AM- [address] [facility]. Follow -up with cardiology in 2-3 weeks. Follow-up with vascular in 2-3 weeks. - Diet and Activity Activity: increase activity as tolerated Diet: diabetic diet, low fat, low cholesterol, low salt diet Hospital course: Mr. Santos is a 71 year old male with past medical history of diabetes, hyperlipidemia, hypertension, valvular heart disease. Patient woke up on Tuesday was intense, sharp stabbing right temporal and frontal headache that persisted throughout the day, then later that night his right eye spontaneously deviated nasally and has remained in that position. Patient refused to go to the emergency department at that time stated he wanted to follow up with his primary care provider on Tuesday. His symptoms got worse in that he woke up the next morning and started to have difficulty ambulating at which time his made him go to the emergency department. Associated symptoms include difficulty with his vision and difficulty using his right arm. Head CT unremarkable in the emergency department. Brain MRI revealing acute left cerebellar lacunar infarct. Patient was admitted to the hospitalist service for further evaluation and management. Neurology brought on board recommended initiation of Plavix. Carotid duplex revealing moderate stenosis to the right side and nonstenotic plaque to the [id number] outpatient with vascular. Echocardiogram revealing ejection fraction of 55-60% with moderate aortic [id number] outpatient with cardiology. For his acute onset of right- sided esotropia, I spoke to his buttermaker continuous churn Dr. Mace ([phone]) who states the patient can follow up with him on Wednesday 12/20 at 8:15 AM. He was seen and evaluated by occupational and physical therapy both of whom surmised he had no needs. He was discharged home in stable condition with close outpatient follow-up recommended. ITS Impressions Head CT 12/12/16 08:44 IMPRESSION: No acute intracranial abnormality. If acute cerebral infarct is a clinical concern, an MRI is a more sensitive study. D/ / Frances Vargas Cha, MD / Frances Vargas Cha, MD Interpreting Provider: Frances Vargas Cha, MD Brain MRI 12/12/16 09:36 IMPRESSION: 1. Small, acute left cerebellar lacunar infarct. 2. Mild generalized volume loss and mild microvascular ischemic disease are similar to prior. 3. No abnormal enhancement or mass lesion along the course of cranial nerves VII or VIII. The findings were sent to the Radiology Results Communication Center at 12:59 p.m. on 12/12/2016to be communicated to a licensed caregiver. D/ / 12/12/2016 13:02:18 Tiffany Ontiveros MD / ann-marie Interpreting Provider: Tiffany Ontiveros MD 12/12/16 15:47 - Vascular Preliminary by Rosa [facility] [place] Num: [id number] : 1945 Patient Age: 71 Carotid duplex exam complete. Right ICA PROX appears 60-79% stenosis, Right ICA MID appears 40-59% stenosis. There appears to be non stenotic plaque in left bifurcation. Echocardiogram with saline contrast impressions: No evidence of PFO by color Doppler or agitated saline. Moderate aortic stenosis by mean gradient of 24 mmHg may be more than expected for bioprosthetic valve, please correlate clinically with his valve type and size. LVEF 55-60%. - Time Spent with Patient Total time spent providing and/or coordinating discharge services: - Constitutional Vitals: Temp Pulse Resp BP Pulse Ox 97.3 F L 53 16 128/76 98 12/13/16 07:46 12/13/16 07:46 12/13/16 07:46 12/13/16 07:46 12/13/16 07:46 General appearance: Present: A&O X 3, pleasant, no acute distress, answers questions appropriately - Head Head exam: Present: atraumatic, normocephalic - Eye Eye exam: Present: conjuntiva pink, sclera anicteric. Absent: EOMI, normal appearance Pupils: Present: mydriatic, normal accommodation - Expanded Eye Exam Pupils: regular, round: Left (esotropia bilaterally) - Neck Neck exam general surgery: Present: supple, trachea midline. Absent: lymphadenopathy - Respiratory Respiratory exam: Present: CTAB. Absent: accessory muscle use, rales, respiratory distress, rhonchi, wheezes - Cardiovascular Cardiovascular exam: Present: RRR, +S1, +S2. Absent: diastolic murmur, gallop, rubs, systolic murmur - GI/Abdominal GI/Abdominal exam: Present: normal bowel sounds, soft, no peritoneal signs. Absent: distended, tenderness - Extremities Exam Extremities exam: Present: warm, radial pulses palpable and symetrical. Absent : calf tenderness, cyanotic, pedal edema - Neurological Exam Neurological exam: Present: alert, CN II-XII intact, oriented X3, no focal deficits, strengths equal and symetr throughout. Absent: pronater drift, facial droop, speech deficit - Expanded Neurological Exam Neurological exam expanded: Present: protecting the airway Patient oriented to: Present: person, place, time Speech: Present: fluid speech Cranial Nerves: EOM's intact PM: Abnormal Left, Abnormal Right Neuro motor strength exam: LUE: 5, RUE: 5, LLE: 5, RLE: 5 Coma Scale Eye Opening: Spontaneous Coma Scale Motor Response: Obeys Commands Coma Scale Verbal Response: Oriented Coma Scale Total: 15 - Skin Skin exam: Present: dry, intact, normal color, warm
--- NOTE | 2016-12-13 10:51 | Neurology Progress Note ---
Date of Encounter: 12/13/16 Time of Encounter: 09:20 Assessment and Plan (1) Cerebellar infarction Current Visit: Yes Status: Acute Noted on MRI. Likely the cause of the patient's esotropia of right eye. Patient will likely benefit from therapy and ophthalmology follow-up outpatient. Patient to benefit from anti-platelet therapy/plavix outpatient as well as statin therapy. Patient to benefit from outpatient vascular surgery follow-up for right ICA stenosis. (2) Esotropia of right eye Current Visit: Yes Status: Acute See above. 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 Patient feels much better and states he is ready to go home. Objective - Constitutional Vitals: Temp Pulse Resp BP Pulse Ox 97.3 F L 53 16 128/76 98 12/13/16 07:46 12/13/16 07:46 12/13/16 07:46 12/13/16 07:46 12/13/16 07:46 General appearance: Present: A&O X 3, no acute distress - Eye Additional comments: Right eye deviated to left. 3rd cranial nerve palsy. - Neurological Exam Sensorimotor examination: Present: intact Motor Examination: Present: full strength in all major muscle groups Motor examination - left side: 5/5: deltoids, biceps, triceps, wrist flexion, wrist extension, hip flexors, stoneworking sander, quadriceps, tibialis Anterior, toe extension (EHL), plantarflexion Sensation intact: Present: intact Reflexes: Biceps: 2+, Patella: 2+ Mental Status Examination: Present: awake, alert, oriented to person, oriented to place, oriented to time, follows commands appropriately, answers questions appropriately, no agnosia, no aphasia Cranial nerve examination: Present: PERRL (Difficulty in eye movement of his right eye which is deviated nasally and not able to move to right.), EOMI (left eye droop and deviated nasally, at baseline) Cranial Nerve Exam: CN III palsy: Right, partial CN III palsy: Left (old) Results - Laboratory Findings CBC and BMP: 12/13/16 00:43 12/13/16 00:43 Abnormal lab findings: Abnormal lab results PT 12.2 Seconds (9.4-12.1) H 12/12/16 08:54 Sodium 135 mEq/L (136-145) L 12/13/16 00:43 Glucose 193 mg/dL (70-99) H 12/13/16 00:43 POC Glucose 181 (58-89) H 12/13/16 07:49 B-Natriuretic Peptide 167 pg/mL (0-100) H 12/13/16 00:43 Albumin 3.4 g/dL (3.5-5.0) L 12/13/16 00:43 HDL Cholesterol 38 mg/dL (40-59) L 12/13/16 00:43 Urine Glucose (UA) >=1000 mg/dL (Normal) H 12/12/16 22:00 Urine Ketones Trace mg/dL (Negative) H 12/12/16 22:00 Consult Discharge Plan - Plan Additional Instructions: Follow-up with primary care provider in one to 2 weeks, follow-up with stone derrickman and rigger on Wednesday 12/20 at 8:15 AM- [address] [facility] Referrals: Jeremi Oshea Jr, MD [Primary Care Provider] - Vargas Mace MD [Non-Partnered Physician] - Prescriptions: Clopidogrel [Plavix] 75 mg PO DAILY #30 tablet - Attending Attestation I examined this patient and my medical decision-making was reviewed with the Resident Physician. I agree with the documented findings, disposition and treatment plan as described except to the extent set forth below.
[2016-12-13 11:27] VITALS: BP 154/79
--- NOTE | 2016-12-13 16:47 | Electrocardiograph Report ---
[address] [address] Test Date: 2016-12-12 Pat Name: Sascha Santos Department: 105 Room: 3B Gender: M Golf Course Keeper: : 1945 Requested By: Yg Sainz Order Number: [id number] Reading MD: Sascha Mobley MD Measurements Intervals [place] Rate: 67 P: 257 W[place]: 150 QRS: -20 QRSD: 98 T: 19 QT: 392 QTc: 407 Interpretive Statements SINUS RHYTHM MINIMAL VOLTAGE CRITERIA FOR LVH Electronically Signed On 12-13-2016 16:46:11 EST by Sascha Mobley MD
--- NOTE | 2016-12-14 17:32 | Carotid Imaging Report ---
Carotid Duplex Patient Name:Sascha Santos Order Number:[id number] Procedure Date:12/12/2016 Date:1945ge:71 yrs Gender:Male Lt BP:161 / 80 mmHg Rt.BP:161 / 90 mmHgHeart Rate: Location:[facility] Room #: [facility] Tube Inspector:Rosa Boland Referring MD:Mario Andrews MD steam shovel engineer:Jeremi Oshea MD Reading MD:Trent Rosen MD Primary Indications:CVA Risk Factors Yes/No Hypertension Yes Diabetes Yes Hypercholesterolemia Yes Impressions: The right internal carotid artery has a 60-79% stenosis. The left carotid artery has minimal plaque throughout. Recommendations: Risk factor reduction. Further evaluation recommended if clinically indicated. Follow-up carotid duplex in 1 year. After imaging the patient returned to their room. Findings Carotid Duplex: Right: The right proximal common carotid artery has a PSV of 42 cm/s and a EDV of 7 cm/s. The right mid common carotid artery has a PSV of 61 cm/s and a EDV of 9 cm/s. The right distal common carotid artery has a PSV of 41 cm/s and a EDV of 10 cm/s. There is nonstenotic plaque in the right bifurcation with a PSV of 101 cm/s and a EDV of 19 cm/s. There is calcified plaque. There is 60-79% stenosis in the right proximal internal carotid artery with a PSV of 187 cm/s and a EDV of 47 cm/s. There is 40-59% stenosis in the right mid internal carotid artery with a PSV of 169 cm/s and a EDV of 27 cm/s. The right distal internal carotid artery has a PSV of 61 cm/s and a EDV of 18 cm/s. There is nonstenotic plaque in the right eca with a PSV of 199 cm/s and a EDV of 13 cm/s. The right vertebral artery has a PSV of 65 cm/s and a EDV of 12 cm/s. Left: The left proximal common carotid artery has a PSV of 56 cm/s and a EDV of 8 cm/s. The left mid common carotid artery has a PSV of 52 cm/s and a EDV of 7 cm/s. The left distal common carotid artery has a PSV of 42 cm/s and a EDV of 7 cm/s. There is nonstenotic plaque in the left bifurcation with a PSV of 83 cm/s and a EDV of 18 cm/s. There is calcified plaque. The left proximal internal carotid artery has a PSV of 99 cm/s and a EDV of 23 cm/s. The left mid internal carotid artery has a PSV of 77 cm/s and a EDV of 24 cm/s. The left distal internal carotid artery has a PSV of 72 cm/s and a EDV of 20 cm/s. The left eca has a PSV of 91 cm/s and a EDV of 6 cm/s. The left vertebral artery has a PSV of 76 cm/s and a EDV of 10 cm/s. Prior Study: No prior study available for comparison. Carotid Results Right PSV EDV Assessment Proximal CCA 42 7 Normal Mid CCA 61 9 Normal Distal CCA 41 10 Normal Bifurcation 101 19 Non Stenotic Plaque Proximal ICA 187 47 60-79% stenosis Mid ICA 169 27 40-59% stenosis Distal ICA 61 18 Normal ECA 199 13 Non Stenotic Plaque Vertebral Artery 65 12 Normal Left PSV EDV Assessment Proximal ICA 99 23 Normal Mid ICA 77 24 Normal Distal ICA 72 20 Normal ECA 91 6 Normal Vertebral Artery 76 10 Normal Proximal CCA 56 8 Normal Mid CCA 52 7 Normal Distal CCA 42 7 Normal Bifurcation 83 18 Non Stenotic Plaque Ratio's Right ICA/CCA Ratio: 3.07 ICA/CCA Values: 187/61 Left ICA/CCA Ratio: 1.90 ICA/CCA Values: 99/52 Updated by Trent Rosen MD on 12/14/2016 5:28:43 PM electronically signed on 12/14/2016 5:28:55 PM with status of Final
== END 2016-12-13 15:30 | disposition home or self-care (01) | DRG 66 ==
LOC: 3BNU 08:37 → EMEROO 08:37 → 3BNU 10:42
PROVIDERS: ADMIT Nurse Practitioner Family; ATTEND Nurse Practitioner Family